=== PATIENT | male | born 1990 ===

== ENCOUNTER 2021-09-02 11:22 | Emergency (ER) | payer OTHER, SELFPAY ==
--- NOTE | ~2021-09-02 | XR_ITS ---
EXAMINATION: XR KNEE, LEFT CLINICAL INFORMATION: Left knee pain. COMPARISON: None. TECHNIQUE: Four views of the left knee. FINDINGS: No acute fractures or malalignment. No significant degenerative changes. Small joint effusion. Otherwise, normal soft tissues. No unexpected radiopaque foreign bodies. XR/XR knee LT 4V IMPRESSION: No acute fractures or malalignment. Small joint effusion.
--- NOTE | ~2021-09-02 | US_ITS ---
EXAMINATION: US VENOUS ULTRASOUND WITH DOPPLER LOWER EXTREMITY, LEFT CLINICAL INFORMATION: Popliteal fossa tenderness COMPARISON: None TECHNIQUE: Ultrasound of the deep veins is performed from the hip to the calf with compression sonography and color and pulse Doppler assessment. Spectral analysis with color-flow imaging is performed. FINDINGS: There is normal venous compression and respiratory variation and augmented flow. The visualized common femoral vein, superficial femoral vein, profunda femoral vein, popliteal vein, and the trifurcation region shows no evidence of deep venous thrombosis. There is no significant popliteal fossa cyst. If the patient's symptoms persist, followup ultrasound in 5 days 7 days might be of value to exclude proximal propagation from a non-visualized calf vein. US/US venous duplex LE LT IMPRESSION: No DVT demonstrated in the left lower extremity.
[2021-09-02 12:18] VITALS: BP 135/80; PULSE 76; RESP 18; TEMP 37; O2SAT 98; BMI 20.5
--- NOTE | 2021-09-02 15:41 | ED_ITS ---
HPI - Extremity Problem General Chief complaint: Extremity Injury, Lower Stated complaint: pain in L knee Time Seen by Provider: 09/02/21 14:59 Source: patient Mode of arrival: ambulatory Limitations: no limitations History of Present Illness HPI Narrative: 30-year-old male presents to the ER with left knee pain for the last 2 weeks. He reports the pain is located behind his knee and it is worse with ambulation and flexion of the knee. He denies any trauma or injury. He denies any swelling of the knee. It is tender in the but he denies any redness. He does have any calf pain, chest pain, shortness of breath. No personal or family history of blood clots. He reports the pain is making it hard for him to walk. He has been taking Motrin with no relief. He has been unable to get in with his doctor for the last 3 months. MD Complaint: joint paint Onset (ago): week(s) (2) Pain Consistency: constant Location: left and knee Severity scale (1-10): 8 Quality: aching Radiation: none Relieving factors: immobilization Exacerbating factors: range of motion, weight bearing, walking and palpation Associated symptoms: denies other symptoms Related Data Previous Rx's Medication Instructions Recorded naproxen 500 mg tablet 500 mg PO BID PRN #20 tab 09/02/21 Allergies Allergy/AdvReac Type Severity Reaction Status Date / Time No Known Allergies Allergy Verified 09/02/21 12:18 [No Known Allergies*] Review of Systems Review of Systems: Constitutional: No Fever, No Chills Cardiovascular: No Chest Pain, No SOB Gastrointestinal: No Nausea, No Vomiting, No abdominal Pain Musculoskeletal: + joint pain, + Myalgias Skin: No Skin Lesions, No rash Neuro: No Weakness, No Numbness, Heme/Lymph: No Bruising, No Lymphadenopathy PMFSH Past Medical History Surgical History (Updated 09/30/20 @ 12:57 by BIGG Rowland) History of appendectomy Family History Family History (Updated 09/30/20 @ 12:58 by BIGG Rowland) Father No problems noted. Mother Hypertension Paternal Grandmother Cancer Social History Social History Advance Directives: No Advance Directives Information Provided: No Physical Exam Vital Signs: Vital Signs: Last Vital Signs Temp 98.6 F 09/02/21 12:18 Pulse 76 09/02/21 12:18 Resp 18 09/02/21 12:18 BP 135/80 09/02/21 12:18 Pulse Ox 98 09/02/21 12:18 BMI result Body Mass Index 20.5 Appearance: Alert. Oriented X3. No acute distress. HEENT: normal inspection CVS: Normal heart rate and rhythm. Pulses normal. Respiratory: No respiratory distress. Skin: Skin warm and dry. Normal skin color. Normal skin turgor. No rashes. Extremities: Normal inspection of the bilateral knees. No swelling or anterior tenderness. Posteriorly in the popliteal fossa there is some mild generalized swelling and diffuse tenderness. No palpable mass. No erythema or warmth. No calf tenderness. Pain upon flexion past 90 degrees. Neuro: Oriented X 3. No motor deficit. No sensory deficit. Ambulates with a limp. Course Course Course Narrative: 30-year-old male presenting to the ER with 2 weeks of left posterior, nontraumatic knee pain. He is tender in the popliteal fossa. Will get ultrasound to rule out Dey's cyst verses possible DVT. X-rays of the knee are also pending. No evidence of effusion on exam. No evidence of infection. Reevaluation(s) Reevaluation #1: X-ray showing a small joint effusion. Ultrasound showing no DVT and no Dey cyst. Patient placed in Chris wrap for compression and support. He was requesting crutches was a work note. Will prescribe NSAID and have follow-up with Ortho for further management. Discharge Plan Discharge Clinical Impression: Effusion of left knee Patient Disposition: Home, Self-Care Instructions: Swollen Knee Joint (ED) Additional Instructions: Your x-ray today did not show any acute fractures or bony abnormalities, it did show a very small amount of fluid around the knee joint itself. Your ultrasound did not show any blood clots or cysts behind the knee. Recommend Chris wrap for compression and support. Recommend Tylenol 975 mg every 6 hours around the clock for pain. Take the prescribed medication for pain and swelling - take with food. Rest and ice your knee as much as possible. Elevated as able. Recommend following up with salon customer experience specialist-name and number below. Prescriptions: New naproxen 500 mg tablet 500 mg PO BID PRN (Reason: pain) Qty: 20 RF: 0 Referrals: Samanta Dillard PA-C [Physician Environmental Health Safety Engineer] - 1 week (Left knee pain, joint effusion) Stand Alone Forms: Work/School Release Interventions: ED Discharge Assessment Last Done: 09/02/21 17:40 Discharge Date/Time: 09/02/21 17:40
== END 2021-09-02 17:40 | disposition home or self-care (01) ==
PROVIDERS: Emergency Provider Emergency Medicine
DX: M25.462 Effusion, left knee (principal)
CPT/HCPCS: 73564; 93971; 99283; 99284

== ENCOUNTER 2021-09-29 07:12 | Outpatient (REF) | payer OTHER, SELFPAY ==
--- NOTE | ~2021-09-29 | XR_ITS ---
EXAMINATION: LEFT KNEE X-RAY CLINICAL INFORMATION: Pain COMPARISON: Previous x-ray 09/02/2021 TECHNIQUE: [place] view FINDINGS: There is normal patellofemoral alignment on the sunrise view. Soft tissues are normal. XR/XR knee LT 1V IMPRESSION: Normal sunrise view.
== END 2021-09-29 07:13 | disposition home or self-care (01) ==
LOC: HO.HOSX 07:12
PROVIDERS: Visit Provider Physician Assistant
DX: S83.92XA Sprain of unspecified site of left knee, initial encounter (principal)
CPT/HCPCS: 73560; 99202

== ENCOUNTER 2021-11-26 11:49 | Emergency (ER) | payer OTHER, SELFPAY ==
[2021-11-26 12:25] VITALS: BP 115/73; PULSE 88; RESP 16; TEMP 36.9; O2SAT 100; BMI 20.5
[2021-11-26 12:54] LABS: IDNOW Serial# 08D9AD1C; Influenza A Negative (Negative); Influenza B2 Negative (Negative); Strep A Nucleic Acid Negative (Negative)
[2021-11-26 12:55] LABS: COVID-19 Test Negative (Negative)
--- NOTE | 2021-11-26 13:22 | ED_ITS ---
HPI - General Adult General Chief complaint: Upper Respiratory Symptoms Stated complaint: Sore throat/Fever/Body aches Time Seen by Provider: 11/26/21 13:22 Source: patient Limitations: no limitations History of Present Illness HPI narrative: Patient presents to the ER complaining of sore throat congestion over the past few days a recent trip to [place]. Patient denies any known COVID-19 contacts. Symptoms are [id number] pain increases with swallowing. Patient also lost his voice. Patient denies tobacco use of prescribed medications at this time. No nausea vomiting fever chills or chest pain. Patient denies cough or sputum production. Related Data Previous Rx's Medication Instructions Recorded naproxen 500 mg tablet 500 mg PO BID PRN #20 tab 09/02/21 meloxicam 15 mg tablet 15 mg PO DAILY #30 tab 10/30/21 amoxicillin 500 mg capsule 500 mg PO TID #30 cap 11/26/21 Allergies Allergy/AdvReac Type Severity Reaction Status Date / Time No Known Allergies Allergy Verified 11/26/21 12:25 [No Known Allergies*] Review of Systems Constitutional: Constitutional: Denies body ache(s), Denies chills, Denies fatigue, Denies fever(s) and Reports headache(s) ENT: Reports headache(s), Denies mouth pain, Reports nasal congestion and Reports sore throat Cardiovascular: Cardiovascular: Denies chest pain and Denies dyspnea Respiratory: Respiratory: Denies cough, Denies pain with cough and Denies dyspnea Gastrointestinal: Gastrointestinal: Denies nausea and Denies vomiting Musculoskeletal: Musculoskeletal: Denies back pain Neurologic: Reports headache(s) Endocrine: Endocrine: Denies fatigue PMFSH Past Medical History Attestation statement: The following information was validated with the patient. Surgical History History of appendectomy Family History Family History Father No problems noted. 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 Blood pressure normal. Heart rate normal. Respiration rate normal. Temperature normal. Oxygen saturation normal. Appearance: Alert. Oriented X3. No acute distress. Head: Normal external exam. Normocephalic. Atraumatic. ENT: Uvula is midline oropharynx is erythematous no exudate no evidence of peritonsillar abscess no stridor. No trismus patient is maintaining secretions. Neck: Soft full range of motion CVS: Heart regular rate and rhythm no murmurs and rub Back: Full range of motion Respiratory: Breath sounds clear to auscultation bilaterally no accessory muscle use Skin: Skin warm and dry. Normal skin color. Normal skin turgor. No rashes/lesions/lacerations noted. Extremities: No lower extremity edema. Extremities exhibit normal range of motion. Extremities nontender. Neuro: Oriented X 3. No motor deficit. No sensory deficit. Reflexes normal. Course Course Course Narrative: Influenza COVID-19 Viral URI Acute pharyngitis 13:25 Swab is negative for COVID-19 influenza patient has clinical signs of acute pharyngitis will treat at this time with antibiotics. Patient's structure warm salt water gargles follow-up with PCP return if symptoms worsen. Medical Decision Making Lab Data Labs: Lab Results 11/26/21 11/26/21 11/26/21 Range/Units 12:29 12:29 12:30 COVID-19 ([facility]) Negative (Negative) COVID-19 Clin Com See Note Influenza Type A ([facility]) Negative (Negative) Influenza Type B (ERIC) Negative (Negative) Influenza A & B Note See Note S. pyogenes GrpA EIRC Negative (Negative) Discharge Plan Discharge Clinical Impression: Pharyngitis Patient Disposition: Home, Self-Care Instructions: Pharyngitis (ED) Additional Instructions: If symptoms are consistent with acute pharyngitis which we will treat with antibiotics. Warm with salt water gargles. Return if symptoms worsen Prescriptions: New amoxicillin 500 mg capsule 500 mg PO TID Qty: 30 0RF No Action meloxicam 15 mg tablet 15 mg PO DAILY Qty: 30 0RF naproxen 500 mg tablet 500 mg PO BID PRN (Reason: pain) Qty: 20 0RF Stand Alone Forms: Work/School Release
== END 2021-11-26 13:38 | disposition home or self-care (01) ==
PROVIDERS: Emergency Provider Emergency Medicine; PCP Nurse Practitioner Family
DX: J02.9 Acute pharyngitis, unspecified (principal); Z20.822 Contact with and (suspected) exposure to COVID-19
CPT/HCPCS: 87502; 87635; 87651; 99283

== ENCOUNTER 2022-06-17 11:09 | Emergency (ER) | payer OTHER, SELFPAY ==
[2022-06-17 12:38] VITALS: BP 121/71; PULSE 86; RESP 16; TEMP 37.3; O2SAT 98; BMI 19.7
[2022-06-17 13:36] LABS: Influenza A PCR NEGATIVE (Negative); Influenza B PCR NEGATIVE (Negative); Resp Syncy Virus RNA Qual PCR NEGATIVE (Negative); SARS COV2 PCR INHOUSE NEGATIVE (Negative)
[2022-06-17 15:51] VITALS: BP 116/68; PULSE 89; RESP 14; TEMP 36.9; O2SAT 98
--- NOTE | 2022-06-17 16:38 | ED_ITS ---
HPI - URI/Sore Throat General Chief Complaint: Upper Respiratory Symptoms Stated Complaint: Fever Time Seen by Provider: 06/17/22 16:38 Source: patient Mode of arrival: ambulatory Limitations: no limitations History of Present Illness HPI Narrative: 31 yo healthy here with 3 days of cough-nonproductive, chills, chest tightness with coughing only. +fever first day which was tactile. No SOB, neck pain or neck stiffness, vomiting, diarrhea, skin rash No sick contact or recent travel 2 covid vaccinations Related Data Previous Rx's Medication Instructions Recorded naproxen 500 mg tablet 500 mg PO BID PRN pain #20 tabs 09/02/21 meloxicam 15 mg tablet 15 mg PO DAILY #30 tabs 10/30/21 amoxicillin 500 mg capsule 500 mg PO TID #30 caps 11/26/21 benzonatate 200 mg capsule 200 mg PO TID PRN cough #30 caps 06/17/22 Allergies Allergy/AdvReac Type Severity Reaction Status Date / Time No Known Allergies Allergy Verified 06/17/22 12:41 [No Known Allergies*] Review of Systems Review of Systems: Yes all other systems are reviewed and are negative Constitutional: Constitutional: Reports no additional constitutional complaints, Denies body ache(s), Reports chills, Reports fever(s), Denies headache(s) and Denies weakness Eyes: Eyes: Reports no additional eye complaints and Denies change in vision ENT: Reports system reviewed and no additional complaints, except as documented, Denies dizziness, Denies headache(s), Reports nasal congestion, Denies nasal discharge and Denies neck pain Cardiovascular: Cardiovascular: Reports no additional cardiovascular complaints, Reports chest pain, Denies leg edema and Denies dyspnea Respiratory: Respiratory: Reports no additional respiratory complaints, Reports cough and Denies dyspnea Gastrointestinal: Gastrointestinal: Reports no additional gastrointestinal complaints, Denies abdominal pain, Denies diarrhea, Denies nausea and Denies vomiting Genitourinary: Genitourinary: Denies urinary incontinence Musculoskeletal: Musculoskeletal: Reports no additional musculoskeletal complaints, Denies back pain, Denies arthralgias, Denies joint swelling, Denies neck pain, Denies numbness and Denies tingling Integumentary/Breasts: Skin/Breast: Reports system reviewed and no additional complaints, except as docu and Denies rash Neurologic: Reports system reviewed and no additional complaints, except as documented, Denies Abnormal speech present, Denies dizziness, Denies headache(s), Denies numbness, Denies tingling and Denies weakness PMFSH Past Medical History Attestation statement: The following information was validated with the patient. Source: old records reviewed and nursing notes reviewed Surgical History History of appendectomy Family History Family History Father No problems noted. 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 Physical Exam Vital Signs: Vital Signs: Last Vital Signs Temp 98.5 F 06/17/22 15:51 Pulse 89 06/17/22 15:51 Resp 14 06/17/22 15:51 BP 116/68 06/17/22 15:51 Pulse Ox 98 06/17/22 15:51 O2 Del Method 06/17/22 15:51 BMI result Body Mass Index 19.7 Const: General: cooperative, healthy appearing, comfortable and no acute distress Orientation/consciousness: patient oriented x3 Limitations: no limitations HEENT: Head: Yes normal to inspection Ears: hearing grossly normal bilaterally and TM's normal bilaterally General nose exam: Normal external nose present Face and sinus: Yes normal facial exam Mouth: Normal oral and palatal mucosa present Throat: Yes posterior oropharynx normal, Yes tonsils normal and Yes uvula midline Eyes: General: appearance normal, both eyes and all related structures Pupils: Equal, round and reactive pupils present Neck: Neck: Yes normal visual inspection Chest: Chest palpation & inspection: normal inspection of the chest Resp: Effort & Inspection: normal respiratory effort Auscultation: clear to auscultation bilaterally Cardio: Rate: regular rate Rhythm: regular rhythm Peripheral pulses: Peripheral pulses 2+ throughout GI: Inspection: Yes normal to inspection Palpation (GI): Soft to palpation and nontender Auscultation: normal bowel sounds Back/Spine/Pelvis: Thoracic/Lumbar Spine: thoracic and lumbar spine normal to inspection Skin: General skin exam: no rashes or lesions noted Neuro: General: patient oriented x3, no focal motor deficits and normal sensation to monofilament Cranial nerves: Yes Equal, round and reactive pupils present Cognition (Neuro): normal cognition Speech: No Abnormal speech present Gait exam (Neuro): Normal gait present Motor exam (neuro): 5/5 motor strength present throughout Extrem: General: Yes normal to inspection, Yes no pedal edema and Yes no calf tenderness MDM - URI/Sore Throat MDM Narrative Medical decision making narrative: 31 yo male here with URI symptoms x 3 days Exaam is normal. VSS. Rapid flu, covid and rsv are negative Likely viral infection. Reviewed worrisome signs/symptoms with patient and when to seek additional care. Comfortable with discharge home. Medical Records Attestation: I reviewed the patient's medical records. Lab Data Attestation: I reviewed the patient's lab results. Labs: Lab Results 06/17/22 Range/Units 12:44 Influenza Type A (PCR) NEGATIVE (Negative) Influenza Type B (PCR) NEGATIVE (Negative) RSV RNA Qual (PCR) NEGATIVE (Negative) SARS-CoV-2 RNA (RT-PCR) NEGATIVE (Negative) Discharge Plan Discharge Clinical Impression: Viral infection Patient Disposition: Home, Self-Care Instructions: Viral Syndrome (ED) Additional Instructions: Testing for flu. covid and rsv are negative Increase fluids, rest Motrin or tylenol for pain or fever as needed Prescriptions: New benzonatate 200 mg capsule 200 mg PO TID PRN (Reason: cough) Qty: 30 0RF No Action meloxicam 15 mg tablet 15 mg PO DAILY Qty: 30 0RF naproxen 500 mg tablet 500 mg PO BID PRN (Reason: pain) Qty: 20 0RF amoxicillin 500 mg capsule 500 mg PO TID Qty: 30 0RF Stand Alone Forms: Work/School Release Interventions: ED Discharge Assessment Last Done: 06/17/22 16:47 Discharge Date/Time: 06/17/22 16:47
== END 2022-06-17 16:47 | disposition home or self-care (01) ==
PROVIDERS: Emergency Provider Emergency Medicine; PCP Nurse Practitioner Family
DX: B34.9 Viral infection, unspecified (principal); R50.9 Fever, unspecified; Z20.822 Contact with and (suspected) exposure to COVID-19; Z79.899 Other long term (current) drug therapy
CPT/HCPCS: 0241U; 99282; 99283

== ENCOUNTER 2024-01-06 10:22 | Emergency (ER) | payer OTHER, SELFPAY ==
--- NOTE | 2024-01-06 10:45 | ED_ITS ---
HPI - General Adult General Chief complaint: Urogenital-Male Stated complaint: urine burning sensation, cough, fever Time Seen by Provider: 01/06/24 10:45 Source: patient Mode of arrival: ambulatory Limitations: no limitations History of Present Illness HPI narrative: Patient is a 33 year old assigned male at with no reported medical history presenting to the emergency department today with pain with urination, clear penile discharge, and a cough. Patient states that he was in [facility] recently where he had unprotected sex and is now having pain with urination and clear penile discharge. Patient denies any penile lesions. Patient states that he has also had a cough the last few days. Patient denies any dizziness, lightheadedness, abdominal pain, nausea, vomiting, fever, chills, blurry vision, double vision, loss of vision, chest pain, difficulty breathing, shortness of breath, back pain, night sweats, increased urinary frequency, increased urinary urgency, blood in his urine or stool, syncope or a near syncopal episode, recent trauma or falls, bowel incontinence, bladder incontinence, bowel retention, bladder retention, or any other complaints at this time. Onset (ago): day(s) Relieving factors: none Exacerbating factors: none Associated symptoms: cough Treatments prior to arrival: none Related Data Previous Rx's ?Medication ?Instructions ?Recorded naproxen 500 mg tablet 500 mg PO BID PRN pain #20 tabs 09/02/21 meloxicam 15 mg tablet 15 mg PO DAILY #30 tabs 10/30/21 amoxicillin 500 mg capsule 500 mg PO TID #30 caps 11/26/21 benzonatate 200 mg capsule 200 mg PO TID PRN cough #30 caps 06/17/22 doxycycline hyclate 100 mg tablet 100 mg PO BID 7 days #14 tabs 01/06/24 Allergies Allergy/AdvReac Type Severity Reaction Status Date / Time No Known Allergies Allergy Verified 01/06/24 10:55 [No Known Allergies*] Review of Systems Constitutional: Constitutional: Reports no additional constitutional complaints, Denies chills, Denies fever(s) and Denies night sweats Eyes: Eyes: Reports no additional eye complaints, Denies blurry vision, Denies change in vision, Denies diplopia, Denies eye discharge, Denies loss of vision and Denies eye pain ENT: Denies dizziness Cardiovascular: Cardiovascular: Reports no additional cardiovascular complaints, Denies chest pain, Denies lightheadedness, Denies Loss of Consciousness and Denies dyspnea Respiratory: Respiratory: Reports no additional respiratory complaints, Reports cough and Denies dyspnea Gastrointestinal: Gastrointestinal: Reports no additional gastrointestinal complaints, Denies abdominal pain, Denies melena, Denies hematochezia, Denies change in bowel habits and Denies change in stool character Genitourinary: Genitourinary: Reports no additional male genitourinary complaints, Denies hematuria, Denies oliguria, Denies difficulty urinating, Reports dysuria, Reports penile discharge (clear), Denies urinary frequency, Denies urinary hesitancy, Denies urinary incontinence and Denies urinary urgency Musculoskeletal: Musculoskeletal: Reports no additional musculoskeletal complaints, Denies numbness and Denies tingling Neurologic: Denies dizziness, Denies loss of vision, Denies numbness and Denies tingling Psychiatric: Psychiatric: Reports no additional psychiatric complaints Endocrine: Endocrine: Reports no additional endocrine complaints Hematologic/Lymphatic: Hematologic/Lymphatic: Reports no additional hematologic/lymphatic complaints Allergic/Immunologic: Allergic/Immunologic: Reports no additional allergic/immunologic complaints PMFSH Past Medical History Attestation statement: The following information was validated with the patient. Source: old records reviewed and nursing notes reviewed Surgical History History of appendectomy Family History Family History Father No problems noted. 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 ED Vital Signs: Vital Signs - 24 hr 01/06/24 10:54 01/06/24 11:37 01/06/24 12:46 Temperature 98 F 98.6 F 96.8 F Pulse Rate 81 73 85 Respiratory Rate 18 20 20 Blood Pressure 123/82 127/61 120/68 Pulse Oximetry 100 99 98 Oxygen Delivery Method Room Air Room Air Room Air BMI result Body Mass Index 19.4 Const General: cooperative, no acute distress, alert and awake Nutritional Appearance: well nourished Orientation/consciousness: patient oriented x3 Limitations: no limitations HENMT Head: Yes normal to inspection and Yes atraumatic Ears: hearing grossly normal bilaterally and external ears normal General nose exam: Normal external nose present, no nasal discharge noted and no epistaxis Face and sinus: Yes normal facial exam, No abrasion and No laceration Mouth: Normal oral and palatal mucosa present, no drooling and no muffled voice Eyes General: appearance normal, both eyes and all related structures Periorbital: periorbital findings normal Eyelids: Yes eyelids normal Conjunctivae: conjunctivae normal Pupils: Equal, round and reactive pupils present EOM: EOMs intact bilaterally Neck Neck: Yes normal visual inspection, Yes full ROM and Yes no lymphadenopathy Chest Chest palpation & inspection: normal inspection of the chest Resp Effort & Inspection: normal respiratory effort and able to speak in complete sentences GI Inspection: Yes normal to inspection Other: patient declined a penile examination Neuro General: patient oriented x3 and moves all extremities Cranial nerves: Yes Equal, round and reactive pupils present Cognition (Neuro): normal cognition Motor exam (neuro): 5/5 motor strength present throughout Sensory Exam: Normal double simultaneous stimulation for sensation Coordination: [id number] test normal Extrem General: Yes normal to inspection, Yes full ROM and Yes capillary refill normal Psych Appearance: grossly normal Mental Status: mental status grossly normal Affect: normal affect Attitude: cooperative Thought process: Normal thought process present Thought content: Normal thought content present Insight: Good insight present (Psych) Medications Administered Discontinued Medications Generic Name Dose Route Start Last Admin Trade Name Freq PRN Reason Stop Dose Admin Ceftriaxone Sodium 500 mg/ 0 mg 01/06/24 10:54 01/06/24 11:51 Lidocaine HCl 1 ml IM 01/06/24 10:55 1 kit ONCE ONE Administration Doxycycline Monohydrate 100 mg 01/06/24 10:54 01/06/24 11:51 Doxycycline Monohydrate 100 Mg Capsule PO 01/06/24 10:55 100 mg ONCE ONE Administration Medical Decision Making Medical Decision Making [facility] Narrative: Patient is a 33 year old assigned male at with no reported medical history presenting to the emergency department today with possible STD exposure, dysuria, penile drainage, and a cough. Patient's physical exam was unremarkable. Patient declined to have me perform a genital exam. Patient's urine showed no acute process. Patient's COVID-19 test was positive. Patient's RSV and Influenza tests were negative. I explained my physical exam findings as well as all test results to the patient. I answered all questions asked by the patient. Patient was given IM Ceftriaxone and PO Doxycycline for STD prophylaxis. I stressed the importance of the patient taking his medication as prescribed. I stressed the importance of the patient following up with his primary care provider. I stressed the importance of the patient returning to the emergency department immediately if his symptoms were to worsen or if he were to develop any dizziness, shortness of breath, difficulty breathing, chest pain, blurry vision, loss of vision, nausea, vomiting, abdominal pain, fever, chills, back pain, or any other complaints. Patient verbalized agreement and understanding with this t reatment plan and discharge. Differential Diagnosis Differential Diagnoses: The differential diagnosis associated with the presentation includes STD exposure Chlamydia Gonorrhea Penile drainage Dysuria COVID-19 Influenza RSV Admission/Observation Consideration of admission/observation: Escalation of care including admission/observation considered Patient would have been admitted to the hospital had his work up had any findings where hospital admission was appropriate and his clinical presentation warranted hospital admission. Lab Data [facility] Lab Attestation statement: I reviewed the patient's lab results. My interpretation of these results are in the [facility] Rationale portion of this note. Labs: Lab Results 01/06/24 Range/Units 11:06 Urine Color Yellow Urine Appearance Clear Urine pH 7.5 (5.0-9.0) Ur Specific [place] 1.020 (1.005-1.025) Urine Protein Negative (Neg-Trace) mg/dL Urine Glucose (UA) Negative (Negative) mg/dL Urine Ketones Negative (Negative) mg/dL Urine Blood Negative (Negative) Urine Nitrite Negative (Negative) Ur Leukocyte Esterase Negative (Negative) Chlam trachomat DNA PCR DETECTED A (Not Detect.) Influenza Type A (PCR) NEGATIVE (Negative) Influenza Type B (PCR) NEGATIVE (Negative) N.gonorrhoeae DNA (PCR) NOT DETECTED (Not Detect.) RSV RNA Qual (PCR) NEGATIVE (Negative) SARS-CoV-2 RNA (RT-PCR) POSITIVE A (Negative) Prescription Management I considered prescription management with: Antibiotic (patient prescribed antibiotic for STI prophylaxis) Discharge Plan Discharge Clinical Impression: Exposure to STD, COVID-19 Patient Disposition: Home, Self-Care Instructions: Sexually Transmitted Diseases (ED), COVID-19 (Coronavirus Disease 2019) (ED) Additional Instructions: Follow up with your primary care provider. Return to the emergency department immediately if your symptoms worsen or if you develop any dizziness, shortness of breath, difficulty breathing, chest pain, blurry vision, loss of vision, nausea, vomiting, abdominal pain, fever, chills, back pain, or any other complaints. Prescriptions: New doxycycline hyclate 100 mg tablet 100 mg PO BID 7 Days Qty: 14 0RF No Action meloxicam 15 mg tablet 15 mg PO DAILY Qty: 30 0RF naproxen 500 mg tablet 500 mg PO BID PRN (Reason: pain) Qty: 20 0RF amoxicillin 500 mg capsule 500 mg PO TID Qty: 30 0RF benzonatate 200 mg capsule 200 mg PO TID PRN (Reason: cough) Qty: 30 0RF [place] [facility] [place] Group] (Call to establish and follow up with a primary care provider. If you already have a primary care provider, please follow up with them.) [facility] [place] [facility] [place] Group] [facility] [place] [facility] [Provider Group] Stand Alone Forms: Work/School Release Interventions: ED Discharge Assessment Last Done: 01/06/24 12:46 Discharge Date/Time: 01/06/24 12:47 Print Language: Frisian
[2024-01-06 10:54] VITALS: BP 123/82; PULSE 81; RESP 18; TEMP 36.6; O2SAT 100; BMI 19.4
[2024-01-06 11:21] LABS: Appearance Urine Clear; Color Urine Yellow; Glucose Urine UA Negative (Negative); Leukocyte Esterase Urine Negative (Negative); Nitrite Urine Negative (Negative); PH 7.5 (5.0-9.0); Urine Blood Negative (Negative); Urine Ketones Negative (Negative); Urine Protein Negative (Neg-Trace)
[2024-01-06 11:37] VITALS: BP 127/61; PULSE 73; RESP 20; TEMP 37; O2SAT 99
[2024-01-06] MEDS: cefTRIAXone sodium 500 MG, Lidocaine HCl 1 % MPF 1 ML IM (11:51)
[2024-01-06] MEDS: Doxycycline Monohydrate 100 MG CAPSULE PO (11:51)
[2024-01-06 11:57] LABS: Influenza A PCR NEGATIVE (Negative); Influenza B PCR NEGATIVE (Negative); Resp Syncy Virus RNA Qual PCR NEGATIVE (Negative); SARS COV2 PCR INHOUSE POSITIVE (Negative)
[2024-01-06 12:46] VITALS: BP 120/68; PULSE 85; RESP 20; TEMP 36; O2SAT 98
[2024-01-06 12:49] LABS: CT PCR DETECTED (Not Detect.); NG PCR NOT DETECTED (Not Detect.)
== END 2024-01-06 12:47 | disposition home or self-care (01) ==
PROVIDERS: Physician Assistant Medical; Emergency Provider Student in an Organized Health Care Education/Training Program
DX: A74.9 Chlamydial infection, unspecified (principal); R30.0 Dysuria; U07.1 COVID-19; Z79.899 Other long term (current) drug therapy
CPT/HCPCS: 0241U; 0353U; 81003; 96372; 99284; J0696

== ENCOUNTER 2024-02-29 09:20 | Emergency (ER) | payer OTHER, SELFPAY ==
[2024-02-29 09:28] VITALS: BP 115/67; PULSE 91; RESP 18; TEMP 37.4; O2SAT 100; BMI 19.9
[2024-02-29 10:00] LABS: IDNOW Serial# 08D9AD1C; Strep A Nucleic Acid Positive (Negative)
[2024-02-29 10:02] LABS: COVID-19 Test Negative (Negative); IDNOW Serial# 152EDE1D
--- NOTE | 2024-02-29 10:08 | ED_ITS ---
HPI - General Adult General Chief complaint: General Medical Stated complaint: sore throat, itchy ear Time Seen by Provider: 02/29/24 10:09 Source: patient Mode of arrival: ambulatory Limitations: no limitations History of Present Illness ED Provider: Niya Toro PA-C HPI narrative: Patient is a 33 year old assigned male at with no reported medical history presenting to the emergency department today with a sore throat, nausea, vomiting, and body aches. Patient states that over the last 2 days he has had a sore throat, nausea, vomiting, and body aches. Patient denies any dizziness, lightheadedness, abdominal pain, fever, chills, blurry vision, double vision, loss of vision, chest pain, difficulty breathing, shortness of breath, back pain, night sweats, pain with urination, increased urinary frequency, increased urinary urgency, blood in his urine or stool, syncope or a near syncopal episode, recent trauma or falls, bowel incontinence, bladder incontinence, or any other complaints at this time. Onset (ago): day(s) (2) Severity: mild Severity scale (1-10): 3 Quality: aching and dull Pain Consistency: constant Relieving factors: none Exacerbating factors: none Associated symptoms: nausea/vomiting Treatments prior to arrival: none Related Data Previous Rx's ?Medication ?Instructions ?Recorded naproxen 500 mg tablet 500 mg PO BID PRN pain #20 tabs 09/02/21 meloxicam 15 mg tablet 15 mg PO DAILY #30 tabs 10/30/21 amoxicillin 500 mg capsule 500 mg PO TID #30 caps 11/26/21 benzonatate 200 mg capsule 200 mg PO TID PRN cough #30 caps 06/17/22 doxycycline hyclate 100 mg tablet 100 mg PO BID 7 days #14 tabs 01/06/24 ondansetron 4 mg disintegrating 4 mg PO Q8H 3 days #9 tabs 02/29/24 tablet penicillin V potassium 500 mg 500 mg PO BID 10 days #20 tabs 02/29/24 tablet Allergies Allergy/AdvReac Type Severity Reaction Status Date / Time No Known Allergies Allergy Verified 02/29/24 09:31 [No Known Allergies*] Review of Systems Constitutional: Constitutional: Reports no additional constitutional complaints, Reports body ache(s), Denies chills, Denies fever(s) and Denies night sweats Eyes: Eyes: Reports no additional eye complaints, Denies blurry vision, Denies change in vision, Denies diplopia, Denies eye discharge, Denies loss of vision and Denies eye pain ENT: Denies dizziness and Reports sore throat Cardiovascular: Cardiovascular: Reports no additional cardiovascular complaints, Denies chest pain, Denies lightheadedness, Denies Loss of Consciousness and Denies dyspnea Respiratory: Respiratory: Reports no additional respiratory complaints and Denies dyspnea Gastrointestinal: Gastrointestinal: Reports no additional gastrointestinal complaints, Denies abdominal pain, Denies melena, Denies hematochezia, Denies change in bowel habits, Denies change in stool character, Reports nausea and Reports vomiting Genitourinary: Genitourinary: Reports no additional male genitourinary complaints, Denies hematuria, Denies oliguria, Denies difficulty urinating, Denies dysuria, Denies urinary frequency, Denies urinary hesitancy, Denies urinary incontinence and Denies urinary urgency Musculoskeletal: Musculoskeletal: Reports no additional musculoskeletal complaints, Denies numbness and Denies tingling Neurologic: Denies dizziness, Denies loss of vision, Denies numbness and Denies tingling Psychiatric: Psychiatric: Reports no additional psychiatric complaints Endocrine: Endocrine: Reports no additional endocrine complaints Hematologic/Lymphatic: Hematologic/Lymphatic: Reports no additional hematologic/lymphatic complaints Allergic/Immunologic: Allergic/Immunologic: Reports no additional allergic/immunologic complaints [facility] Past Medical History Attestation statement: The following information was validated with the patient. Source: old records reviewed and nursing notes reviewed Surgical History History of appendectomy Family History Family History Father No problems noted. 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 Physical Exam ED Vital Signs: Vital Signs - 24 hr 02/29/24 09:28 02/29/24 10:32 Temperature 99.4 F 99.4 F Pulse Rate 91 91 Respiratory Rate 18 18 Blood Pressure 115/67 115/67 Pulse Oximetry 100 100 Oxygen Delivery Method Room Air Room Air BMI result Body Mass Index 19.9 Const General: cooperative, no acute distress, alert and awake Nutritional Appearance: well nourished Orientation/consciousness: patient oriented x3 Limitations: no limitations HENMT Head: Yes normal to inspection and Yes atraumatic Ears: hearing grossly normal bilaterally and external ears normal General nose exam: Normal external nose present, no nasal discharge noted and no epistaxis Face and sinus: Yes normal facial exam, No abrasion and No laceration Mouth: Normal oral and palatal mucosa present, no drooling and no muffled voice Eyes General: appearance normal, both eyes and all related structures Periorbital: periorbital findings normal Eyelids: Yes eyelids normal Conjunctivae: conjunctivae normal Pupils: Equal, round and reactive pupils present EOM: EOMs intact bilaterally Neck Neck: Yes normal visual inspection, Yes full ROM and Yes no lymphadenopathy Chest Chest palpation & inspection: normal inspection of the chest Resp Effort & Inspection: normal respiratory effort and able to speak in complete sentences GI Inspection: Yes normal to inspection Neuro General: patient oriented x3 and moves all extremities Cranial nerves: Yes Equal, round and reactive pupils present Cognition (Neuro): normal cognition Extrem General: Yes normal to inspection, Yes full ROM and Yes capillary refill normal Psych Appearance: grossly normal Mental Status: mental status grossly normal Affect: normal affect Attitude: cooperative Thought process: Normal thought process present Thought content: Normal thought content present Insight: Good insight present (Psych) Medical Decision Making Medical Decision Making MDM Narrative: Patient is a 33 year old assigned male at with no reported medical history presenting to the emergency department today with a sore throat, body aches, and nausea/vomiting. Patient's physical exam was unremarkable. Patient's COVID-19 test was negative. Patient's strep test was positive. I explained my physical exam findings as well as all test results to the patient. I answered all questions asked by the patient. I stressed the importance of the patient taking his medication as directed (either prescribed or as the over the counter packaging recommends). I stressed the importance of the patient following up with his primary care provider. I stressed the importance of the patient returning to the emergency department immediately if his symptoms were to worsen or if he were to develop any dizziness, shortness of breath, difficulty breathing, chest pain, blurry vision, loss of vision, nausea, vomiting, abdominal pain, fever, chills, back pain, or any other complaints. Patient verbalized agreement and understanding with this treatment plan and discharge. Differential Diagnosis Differential Diagnoses: The differential diagnosis associated with the presentation includes Strep pharyngitis COVID-19 Admission/Observation Consideration of admission/observation: Escalation of care including admission/observation considered Patient would have been admitted to the hospital had his work up had any findings where hospital admission was appropriate and his clinical presentation warranted hospital admission. Lab Data [facility] Lab Attestation statement: I reviewed the patient's lab results. My interpretation of these results are in the [facility] Rationale portion of this note. Labs: Lab Results 02/29/24 Range/Units 09:41 COVID-19 (LUIS MIGUEL) Negative (Negative) COVID-19 Clin Com See Note S. pyogenes GrpA ERIC Positive A (Negative) Prescription Management I considered prescription management with: Antibiotic (patient prescribed an antibiotic for his strep pharyngitis) Discharge Plan Discharge Clinical Impression: Strep pharyngitis Patient Disposition: Home, Self-Care Instructions: Strep Throat (DC) Additional Instructions: Follow up with your primary care provider. Return to the emergency department immediately if your symptoms worsen or if you develop any dizziness, shortness of breath, difficulty breathing, chest pain, blurry vision, loss of vision, nausea, vomiting, abdominal pain, fever, chills, back pain, or any other complaints. Prescriptions: New penicillin V potassium 500 mg tablet 500 mg PO BID 10 Days Qty: 20 0RF ondansetron 4 mg tablet,disintegrating 4 mg PO Q8H 3 Days Qty: 9 0RF No Action meloxicam 15 mg tablet 15 mg PO DAILY Qty: 30 0RF naproxen 500 mg tablet 500 mg PO BID PRN (Reason: pain) Qty: 20 0RF amoxicillin 500 mg capsule 500 mg PO TID Qty: 30 0RF benzonatate 200 mg capsule 200 mg PO TID PRN (Reason: cough) Qty: 30 0RF doxycycline hyclate 100 mg tablet 100 mg PO BID 7 Days Qty: 14 0RF [place] [facility] [place] (Call to establish and follow up with a primary care provider. If you already have a primary care provider, please follow up with them.) [facility] [place] [facility] [place] Group[place] [facility] [place] [facility] [place] Group] Stand Alone Forms: Work/School Release Interventions: ED Discharge Assessment Last Done: 02/29/24 10:32 Discharge Date/Time: 02/29/24 10:32 Print Language: Vincentian
[2024-02-29 10:32] VITALS: BP 115/67; PULSE 91; RESP 18; TEMP 37.4; O2SAT 100
--- NOTE | 2024-02-29 10:32 | PC.NURSE ---
nad, skin wpd, sore throAT
== END 2024-02-29 10:32 | disposition home or self-care (01) ==
PROVIDERS: Emergency Provider Emergency Medicine
DX: J02.0 Streptococcal pharyngitis (principal); R11.2 Nausea with vomiting, unspecified; R52 Pain, unspecified; Z79.899 Other long term (current) drug therapy
CPT/HCPCS: 87635; 87651; 99282; 99283

== ENCOUNTER 2024-04-23 11:11 | Emergency (ER) | payer SELFPAY ==
[2024-04-23 12:12] VITALS: BP 114/66; PULSE 79; RESP 18; TEMP 37; O2SAT 100; BMI 20.2
--- NOTE | 2024-04-23 12:13 | ED.GENADULT ---
HPI - General Adult General Chief complaint: Upper Respiratory Symptoms Stated complaint: sore throat r ear pain Time Seen by Provider: 04/23/24 16:54 Source: patient Mode of arrival: ambulatory Limitations: no limitations History of Present Illness ED Provider: jose YUEN narrative: Patient is a 33-year-old male presenting to the emergency department with complaint of sore throat and right ear pain for the past 48 hours. Pain increases with swallowing, still able to drink fluids and manage secretions. Reports subjective fever on Tuesday, none since. Recently treated for strep and states that he completed the full course of antibiotics as prescribed, got a new toothbrush after treatment. Denies any discharge or drainage from ear. Denies cough or difficulty breathing. MD complaint: sore throat, ear pain Onset (ago): day(s) Quality: burning Pain Consistency: constant Exacerbating factors: eating Treatments prior to arrival: none Related Data Previous Rx's ?Medication ?Instructions ?Recorded naproxen 500 mg tablet 500 mg PO BID PRN pain #20 tabs 09/02/21 meloxicam 15 mg tablet 15 mg PO DAILY #30 tabs 10/30/21 amoxicillin 500 mg capsule 500 mg PO TID #30 caps 11/26/21 benzonatate 200 mg capsule 200 mg PO TID PRN cough #30 caps 06/17/22 doxycycline hyclate 100 mg tablet 100 mg PO BID 7 days #14 tabs 01/06/24 ondansetron 4 mg disintegrating 4 mg PO Q8H 3 days #9 tabs 02/29/24 tablet penicillin V potassium 500 mg 500 mg PO BID 10 days #20 tabs 02/29/24 tablet Allergies Allergy/AdvReac Type Severity Reaction Status Date / Time No Known Allergies Allergy Verified 04/23/24 12:15 [No Known Allergies*] Review of Systems Review of Systems: As per HPI. Yes all other systems are reviewed and are negative Constitutional: Constitutional: Reports as per HPI [facility] Past Medical History Surgical History History of appendectomy Family History Family History Father No problems noted. 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 Blood pressure normal. Heart rate normal. Respiratory rate normal. Temperature normal. Oxygen saturation normal. Const General: cooperative, healthy appearing and no acute distress Orientation/consciousness: oriented to person, oriented to place, oriented to time and patient oriented x3 Limitations: no limitations HENMT Head: Yes normocephalic and Yes atraumatic Ears: hearing grossly normal bilaterally, external ears normal, TM's normal bilaterally, EAC's normal, mastoids normal bilaterally and no periauricular adenopathy General nose exam: Normal external nose present, Normal nasal mucous membranes and turbinates present and Normal septum present Face and sinus: Yes sinuses nontender and Yes face symmetric Mouth: Normal oral and palatal mucosa present, lip normal, tongue normal, oropharynx normal, moist mucous membranes, no audible dysphonia, no drooling, no muffled voice, no trismus and No restricted motion Throat: Yes uvula midline, Yes abnormal tonsil (erythema, tonsiloliths present, no exudate), No peritonsillar mass and No uvular edema Eyes Pupils: Equal, round and reactive pupils present Neck Neck: Yes normal visual inspection and Yes supple Lymphatic: lymphadenopathy right anterior cervical multiple, small and soft Resp Effort & Inspection: normal respiratory effort and able to speak in complete sentences Auscultation: clear to auscultation bilaterally Cardio Rate: regular rate Rhythm: regular rhythm Heart sounds: S1 normal heart sound present and S2 normal heart sound present GI Palpation (GI): Soft to palpation and nontender Auscultation: normoactive bowel sounds General: Yes no CVA tenderness Back/Spine/Pelvis Back: no CVA tenderness Skin General skin exam: elasticity normal and turgor normal Neuro General: oriented to person, oriented to place, oriented to time, patient oriented x3, moves all extremities, no focal motor deficits and CN's II-XI intact bilaterally Cranial nerves: Yes Equal, round and reactive pupils present Cognition (Neuro): normal cognition Extrem General: Yes full ROM, Yes no pedal edema and Yes no calf tenderness Psych Mental Status: mental status grossly normal Affect: normal affect Thought process: Normal thought process present Course Course Course Narrative: RME performed by Niya Toro PA-C. Patient is a 33 year old assigned male at presenting to the emergency department with a sore throat and right ear pain. Patient states he is having a sore throat and right ear pain. Patient states that he was seen for this recently and it was strep but he finished his ABX and threw away his toothbrush. Detailed physical exam and review of systems are deferred to the coal handler. Swabs ordered. Patient placed back in the waiting room pending room availability and results. Medical Decision Making Medical Decision Making [facility] Narrative: Patient is a 33-year-old male presenting to the emergency department with complaint of sore throat and right ear pain for the past 48 hours. On exam patient is awake, A+Ox3, VS WNL, afebrile, normal neurological exam without focal deficits, physical exam findings as above. Given reported symptoms and physical exam findings, initial differential includes strep versus viral pharyngitis, Covid, flu, mononucleosis, otitis media, otitis externa. Do not suspect CO FOUNDER/RPA. Strep and viral panel negative, mono also negative. Discussed with patient alternating Tylenol and ibuprofen, warm salt water gargles. Return precautions discussed. Follow up with PCP. Patient verbalized understanding of and agreement with plan. Differential Diagnosis Differential Diagnoses: The differential diagnosis associated with the presentation includes As per MDM. Lab Data [facility] Lab Attestation statement: I reviewed the patient's lab results. As per MDM. Labs: Lab Results 04/23/24 04/23/24 Range/Units 12:22 17:17 Monoscreen Negative (Negative) Influenza Type A (PCR) NEGATIVE (Negative) Influenza Type B (PCR) NEGATIVE (Negative) RSV RNA Qual (PCR) NEGATIVE (Negative) SARS-CoV-2 RNA (RT-PCR) NEGATIVE (Negative) S. pyogenes GrpA ERIC Negative (Negative) External Record Review External record reviewed: Inpatient record, Office record and Outpatient record Discharge Plan Discharge Clinical Impression: Pharyngitis Patient Disposition: Home, Self-Care Instructions: Pharyngitis (ED) Additional Instructions: You were evaluated in the emergency department today for a sore throat. Your COVID, flu, and strep swabs were all negative. Your symptoms are likely related to a viral infection which will resolve on its own with time and rest. You were tested for mono which was also negative. Be sure to drink adequate fluids. You can use Tylenol and ibuprofen per package directions as needed for discomfort. You can also gargle with warm salt water several times daily. Follow-up with your primary care provider this week. Return to the emergency department if you develop difficulty swallowing, worsening pain, shortness of breath, are unable to swallow your saliva, or any other concerning symptoms. Prescriptions: No Action meloxicam 15 mg tablet 15 mg PO DAILY Qty: 30 0RF naproxen 500 mg tablet 500 mg PO BID PRN (Reason: pain) Qty: 20 0RF amoxicillin 500 mg capsule 500 mg PO TID Qty: 30 0RF benzonatate 200 mg capsule 200 mg PO TID PRN (Reason: cough) Qty: 30 0RF doxycycline hyclate 100 mg tablet 100 mg PO BID 7 Days Qty: 14 0RF penicillin V potassium 500 mg tablet 500 mg PO BID 10 Days Qty: 20 0RF ondansetron 4 mg tablet,disintegrating 4 mg PO Q8H 3 Days Qty: 9 0RF Print Language: Vietnamese
[2024-04-23 12:52] LABS: IDNOW Serial# 08D9AD1C; Strep A Nucleic Acid Negative (Negative)
[2024-04-23 13:12] LABS: Influenza A PCR NEGATIVE (Negative); Influenza B PCR NEGATIVE (Negative); Resp Syncy Virus RNA Qual PCR NEGATIVE (Negative); SARS COV2 PCR INHOUSE NEGATIVE (Negative)
[2024-04-23 16:54] VITALS: BP 118/79; PULSE 89; RESP 18; TEMP 36.9; O2SAT 99
[2024-04-23 17:55] LABS: Monotest Negative (Negative)
[2024-04-23 18:22] VITALS: BP 115/76; PULSE 81; RESP 16; TEMP 37.4; O2SAT 100
--- NOTE | 2024-04-23 18:45 | PC.NURSE ---
PT WAS EVALUATED AND RESULTS WERE REVIEWD WITH THE PATIENT PLAN IS FOR DISCHARGE HOME.
[2024-04-23 18:47] VITALS: BP 115/76; PULSE 81; RESP 16; TEMP 37.4; O2SAT 100
== END 2024-04-23 18:47 | disposition home or self-care (01) ==
PROVIDERS: Physician Assistant Medical; Registered Nurse Emergency; Emergency Provider Internal Medicine
DX: J02.9 Acute pharyngitis, unspecified (principal); H92.01 Otalgia, right ear; R50.9 Fever, unspecified; Z03.818 Encounter for observation for suspected exposure to other biological agents ruled out
CPT/HCPCS: 0241U; 36415; 86308; 87651; 99283

== ENCOUNTER 2025-07-21 04:41 | Emergency (ER) | payer SELFPAY ==
[2025-07-21 04:42] VITALS: BP 123/69; PULSE 90; RESP 20; TEMP 36.7; O2SAT 100; BMI 20.6
[2025-07-21 05:17] LABS: Hematocrit 36.8 % (42.0-52.0); Hemoglobin 13.6 g/dl (14.0-18.0); Imm Gran Abs Auto 0.02 X10*3/uL (0.00-0.03); Imm Gran Pct Auto 0.1 % (0.0-0.4); Lymphocytes Absolute Auto 4.2 X10*3/uL (1.2-4.9); MANUAL DIFF FLAG NO; Mean Corpuscular HGB Conc 37.0 g/dl (31.0-36.0); Mean Corpuscular Hemoglobin 30.2 pg (27.0-33.0); Mean Corpuscular Volume 81.6 fL (80.0-98.0); NRBC Abs Auto 0.000 X10*3/uL (0.0-0.012); NRBC Pct Auto 0.0 /100WBC (0.0-0.2); Platelet Count 327 X10*3/uL (160-400); Red Blood Count 4.51 X10*6/uL (4.60-5.80); White Blood Count 13.7 X10*3/uL (4.8-10.8)
--- NOTE | 2025-07-21 05:30 | PC.NURSE ---
this RN assumed care of pt approximately this time. pt brought in from triage, pt noted to be covering side of his head, grimacing in pain, pt is A+Ox4, medicated per MAR, IV line placed and blood work and nasal swabsa obtained and sent to lab pending results, call light provided for safety and lights dim for comfort.
[2025-07-21 05:33] LABS: Alanine Aminotransferase 49 U/L (0-40); Albumin Level 4.7 g/dL (3.5-5.0); Alkaline Phosphatase 108 U/L (39-117); Anion Gap 14 (12-20); Aspartate Amino Transferase 35 U/L (5-37); Blood Urea Nitrogen 17 mg/dL (9-16); Calcium 10.0 mg/dL (8.4-10.2); Carbon Dioxide 24 mmol/L (22-29); Chloride 106 mmol/L (96-108); Creatinine Clr Calc Pharmacy 107.2; Estimated Glomerular Filt Rate > 60; Potassium 3.5 mmol/L (3.3-5.1); Sodium 140 mmol/L (135-145); Total Protein 8.2 g/dL (6.5-8.0)
[2025-07-21 05:34] LABS: COVID-19 Test Negative (Negative); IDNOW Serial# 152EDE1D; IDNOW Serial# 16C4AD1C; Influenza B2 Negative (Negative)
[2025-07-21 06:00] VITALS: BP 131/61; PULSE 88; RESP 17; TEMP 36.7; O2SAT 98
--- NOTE | 2025-07-21 06:19 | ED.HA ---
HPI - Headache General Chief Complaint: Headache Stated Complaint: severe headache / blurry vision Time Seen by Provider: 07/21/25 05:35 Source: patient and family () Mode of arrival: ambulatory Limitations: no limitations History of Present Illness ED Provider: Dr. Deric Renteria HPI Narrative: 34-year-old male with no significant past medical history who presents emergency department for evaluation of nasal congestion, epistaxis, cough productive of yellow to bloody sputum, shortness of breath and headache. Patient states that a proximally 1 week prior he worked outside in the rain and got very wet. Since that time, he states he has not been feeling well. The patient states that he has had significant rhinorrhea with a occasional bloody nose. Patient also has a cough which is productive of yellow sputum and occasionally bloody sputum. He denied chest pain but does complain of shortness of breath. He denied dyspnea on exertion. He complains of fatigue, myalgias and arthralgias. At midnight, he developed a gradual onset of headache located on the right side of his head. He the pain as a pounding sensation on the left side of his head, now 10/10. He states that since midnight he has had nausea and several episodes of vomiting. He denied diarrhea. Related Data Previous Rx's ?Medication ?Instructions ?Recorded naproxen 500 mg tablet 500 mg PO BID PRN pain #20 tabs 09/02/21 meloxicam 15 mg tablet 15 mg PO DAILY #30 tabs 10/30/21 amoxicillin 500 mg capsule 500 mg PO TID #30 caps 11/26/21 benzonatate 200 mg capsule 200 mg PO TID PRN cough #30 caps 06/17/22 doxycycline hyclate 100 mg tablet 100 mg PO BID 7 days #14 tabs 01/06/24 ondansetron 4 mg disintegrating 4 mg PO Q8H 3 days #9 tabs 02/29/24 tablet penicillin V potassium 500 mg 500 mg PO BID 10 days #20 tabs 02/29/24 tablet amoxicillin 500 mg capsule 1,000 mg (2 x 500 mg) PO TID 5 07/21/25 days #30 caps azithromycin 250 mg tablet See Rx Instructions PO .COMPLEX #6 07/21/25 (Zithromax Z-Jamal) tabs ondansetron 4 mg disintegrating 4 mg PO Q6-8H PRN nausea and 07/21/25 tablet vomiting #14 tabs Allergies Allergy/AdvReac Type Severity Reaction Status Date / Time No Known Allergies (No Known Allergy Verified 07/21/25 04:45 Allergies*) Review of Systems Review of Systems: Yes all other systems are reviewed and are negative [facility] Past Medical History [facility] Narrative: Social history: He is . He states he has been on family medical leave for proximally 1 month to care for his who had a surgical procedure. He denies tobacco and alcohol use. He states he smokes marijuana daily but he has not been able to smoke marijuana for the last week since he has been feeling sick. Surgical History History of appendectomy Family History Family History Father No problems noted. 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 Exam: General: Awake, alert in no distress Head: Normocephalic, atraumatic EENT: PERRL, sclera and conjunctiva are normal, mouth with no erythema or exudates Neck: Supple, no adenopathy Lung: breath sounds symmetric, no wheezing, no rales, diffuse rhonchi Chest: symmetric movement, nontender Heart: regular rate and rhythm, normal S1, S2 no murmurs or rubs Abdomen: soft, non-tender, nondistended, normal bowel sounds Back: no vertebral tenderness, no CVAT Extremities: no deformities, moves all extremities symmetrically, no edema Neuro: Awake, alert, oriented, normal speech, cranial nerves 2-12 intact, moves all extremities symmetrically Psych: Pleasant, cooperative Medications Administered Discontinued Medications Generic Name Dose Route Start Last Admin Trade Name Shelby PRN Reason Stop Dose Admin Acetaminophen 975 mg 07/21/25 05:20 07/21/25 05:23 Acetaminophen 325 Mg Tablet PO 07/21/25 05:21 975 mg ONCE ONE Administration Amoxicillin 1,000 mg 07/21/25 06:14 07/21/25 07:01 Amoxicillin 500 Mg Capsule PO 07/21/25 06:15 1,000 mg ONCE ONE Administration Azithromycin 500 mg 07/21/25 06:14 07/21/25 07:01 Azithromycin 500 Mg Tablet PO 07/21/25 06:15 500 mg ONCE ONE Administration Diphenhydramine HCl 50 mg 07/21/25 06:14 07/21/25 06:26 Diphenhydramine Hcl 50 Mg/Ml Vial IVPUSH 07/21/25 06:15 50 mg ONCE STA Administration Sodium Chloride 1,000 mls @ 999 mls/hr 07/21/25 06:14 07/21/25 06:26 Ns IV 07/21/25 07:14 999 mls/hr .Q1H1M STA Administration Ketorolac Tromethamine 15 mg 07/21/25 06:14 07/21/25 06:25 Ketorolac Tromethamine 15 Mg/Ml Vial IVPUSH 07/21/25 06:15 15 mg ONCE STA Administration Metoclopramide HCl 10 mg 07/21/25 06:14 07/21/25 06:26 Metoclopramide Hcl 10 Mg/2 Ml Vial IVPUSH 07/21/25 06:15 10 mg ONCE STA Administration Midazolam HCl 2 mg 07/21/25 06:40 07/21/25 06:44 Midazolam Hcl 2 Mg/2 Ml Vial IVPUSH 07/21/25 06:41 2 mg ONCE ONE Administration Medical Decision Making Medical Decision Making MDM Narrative: 34-year-old male with no significant past medical history who presents emergency department for evaluation of nasal congestion, epistaxis, cough productive of yellow to bloody sputum, shortness of breath and headache. Patient states that a proximally 1 week prior he worked outside in the rain and got very wet. Since that time, he states he has not been feeling well. The patient states that he has had significant rhinorrhea with a occasional bloody nose. Patient also has a cough which is productive of yellow sputum and occasionally bloody sputum. He denied chest pain but does complain of shortness of breath. He denied dyspnea on exertion. He complains of fatigue, myalgias and arthralgias. At midnight, he developed a gradual onset of headache located on the right side of his head. He the pain as a pounding sensation on the left side of his head, now 10/10. He states that since midnight he has had nausea and several episodes of vomiting. He denied diarrhea. Vital signs were normal. Lungs did reveal diffuse rhonchi otherwise unremarkable. Neurologic exam was normal. Differential diagnosis: ?Includes but is not limited to viral syndrome, COVID-19, influenza, nonspecific headache, migraine headache, pneumonia, bronchitis, anemia, electrolyte abnormalities Course: 06:39 My interpretation patient's laboratory evaluation is as follows: CBC was normal [place] [address] with a normal differential. CMP was normal except for elevated AST of 49.. COVID 19 and influenza were negative. At this time, I suspect that the patient may have a viral syndrome. The patient's cough with occasional hemoptysis is concerning for possible bacterial bronchitis versus pneumonia and I did discuss this with the patient. Patient's headache is most likely secondary to his infectious process and I do not think that he has a bleed or require CT head. Patient's headache was treated with Toradol 15 mg IV, Reglan 10 mg IV and Benadryl 50 mg IV. She was also given normal saline IV x1 L. patient will be treated with the amoxicillin 1000 mg 3 times a day x5 days and azithromycin Z-Jamal for bronchitis/pneumonia. He is given his 1st dose of these medications orally here in the emergency department. 06:43 Patient does feel restless and has developed akathisia of secondary Reglan therefore he was given Versed 2 mg IV. 07:50 The patient is feeling significantly better after the above treatment. The Versed did help with his akathisia. Patient was advised to take Tylenol ibuprofen for pain. He was given a prescription for Zofran 4 mg ODT every 6-8 hours as needed for nausea and vomiting, amoxicillin 1000 mg TID x5 days and Zithromax Z-Jamal x5 days. He was given printed and verbal instructions and discharged home. Lab Data 07/21/25 05:11 07/21/25 05:11 Labs: Lab Results 07/21/25 Range/Units 05:11 WBC 13.7 H (4.8-10.8) X10*3/uL RBC 4.51 L (4.60-5.80) X10*6/uL Hgb 13.6 L (14.0-18.0) g/dl Hct 36.8 L (42.0-52.0) % MCV 81.6 (80.0-98.0) fL MCH 30.2 (27.0-33.0) pg MCHC 37.0 H (31.0-36.0) g/dl RDW 11.9 (11.0-16.0) % Plt Count 327 (160-400) X10*3/uL MPV 9.5 (9.4-12.4) fL Immature Gran % (Auto) 0.1 (0.0-0.4) % Neut % (Auto) 58.4 (45-73) % Lymph % (Auto) 30.7 (20-40) % [place] % (Auto) 9.0 (2-11) % Eos % (Auto) 1.4 (0-4) % Baso % (Auto) 0.4 (0-2) % Lymph # (Auto) 4.2 (1.2-4.9) X10*3/uL [place] # (Auto) 1.2 (0.1-1.2) X10*3/uL Eos # (Auto) 0.2 (0.0-0.4) X10*3/uL Baso # (Auto) 0.1 (0.0-0.2) X10*3/uL Abs Immat Gran (auto) 0.02 (0.00-0.03) X10*3/uL Absolute Neuts (auto) 8.0 (2.0-8.3) x10*3/uL Absolute Nucleated RBC 0.000 (0.0-0.012) X10*3/uL Nucleated RBC % (auto) 0.0 (0.0-0.2) /100WBC Sodium 140 (135-145) mmol/L Potassium 3.5 (3.3-5.1) mmol/L Chloride 106 (96-108) mmol/L Carbon Dioxide 24 (22-29) mmol/L Anion Gap 14 (12-20) BUN 17 H (9-16) mg/dL Creatinine 0.74 (0.5-1.4) mg/dL Estim Creat Clear Calc 107.2 Estimated GFR > 60 Random Glucose 104 (60-115) mg/dL Calcium 10.0 (8.4-10.2) mg/dL Total Bilirubin 0.3 (0.0-1.0) mg/dL AST 35 (5-37) U/L ALT 49 H (0-40) U/L Alkaline Phosphatase 108 (39-117) U/L Total Protein 8.2 H (6.5-8.0) g/dL Albumin 4.7 (3.5-5.0) g/dL COVID-19 (LUIS MIGUEL) Negative (Negative) COVID-19 Clin Com See Note Influenza Type A (ERIC) Negative (Negative) Influenza Type B (ERIC) Negative (Negative) Influenza A & B Note See Note Discharge Plan Discharge Clinical Impression: Hemoptysis, Acute bronchitis, Headache, Adverse effect of metoclopramide Patient Disposition: Home, Self-Care Instructions: Acute Bronchitis (ED), Acute Headache (DC) Additional Instructions: Your blood work did reveal an elevated white blood cell count otherwise was unremarkable. Your COVID and influenza tests were negative. You were coughing up blood and this has concerning for possible pneumonia versus bronchitis. Therefore I am starting you on 2 antibiotics. Take amoxicillin 500 mg pills, 2 pills, every 6 hours (3 times a day) for 5 days. You were given your 1st dose here in the emergency department. Take Zithromax (azithromycin) Z-Jamal as prescribed. Day 1 take 2 pills, each day after that take 1 pill for total of 5 days. This medication states in your system for 7-10 days and continues to work despite only taking it for 5 days. You were given your 1st dose of Zithromax today. When you get the prescription start with day 1 again tomorrow. Take ibuprofen 200 mg pills, 2 pills every 6 hours as needed for pain or fever. Take Tylenol (acetaminophen) 500 mg pills, 2 pills every 6 hours as needed for pain or fever. Take Zofran ODT 4 mg pills, 1 pill dissolved in your mouth every 8 hours as needed for nausea and vomiting. You had a bad reaction to Reglan (metoclopramide) that gave you a sensation that you needed to run away. This has called Akathisia. You should not receive Reglan (metoclopramide) in the future since you will most likely have this sensation again. Increase the amount of fluid that you drink for the next 1-2 days to help prevent dehydration. Follow-up with your doctor in 2 days. Please return to the emergency department if your symptoms get worse or if you develop any symptoms that are concerning to you. Please see the return to work note. Prescriptions: New amoxicillin 500 mg capsule 1,000 mg PO TID 5 Days Qty: 30 0RF azithromycin [Zithromax Z-Jamal] 250 mg tablet See Rx Instructions .ROUTE .COMPLEX Qty: 6 0RF Rx Instructions: take 500 mg today (day 1), then 250 mg for 4 days (days 2-5) ondansetron 4 mg tablet,disintegrating 4 mg PO Q6-8H PRN (Reason: nausea and vomiting) Qty: 14 0RF No Action meloxicam 15 mg tablet 15 mg PO DAILY Qty: 30 0RF naproxen 500 mg tablet 500 mg PO BID PRN (Reason: pain) Qty: 20 0RF amoxicillin 500 mg capsule 500 mg PO TID Qty: 30 0RF benzonatate 200 mg capsule 200 mg PO TID PRN (Reason: cough) Qty: 30 0RF doxycycline hyclate 100 mg tablet 100 mg PO BID 7 Days Qty: 14 0RF penicillin V potassium 500 mg tablet 500 mg PO BID 10 Days Qty: 20 0RF ondansetron 4 mg tablet,disintegrating 4 mg PO Q8H 3 Days Qty: 9 0RF Stand Alone Forms: Work/School Release Print Language: Turkmen
[2025-07-21 08:16] VITALS: BP 105/54; PULSE 64; RESP 18; TEMP 36.7; O2SAT 98
== END 2025-07-21 08:17 | disposition home or self-care (01) ==
PROVIDERS: Emergency Provider Emergency Medicine Emergency Medical Services
DX: J20.9 Acute bronchitis, unspecified (principal); R04.2 Hemoptysis; R51.9 Headache, unspecified; G25.71 Drug induced akathisia; T45.0X5A Adverse effect of antiallergic and antiemetic drugs, initial encounter; Y92.9 Unspecified place or not applicable
CPT/HCPCS: 80053; 85025; 87502; 87635; 96361; 96374; 96375; 99284; J1200; J1885; J2250; J2765